=== PATIENT | female | born 1980 | race Caucasian/White ===

== ENCOUNTER 2016-12-06 15:23 | Emergency (ER) | payer OTHER ==
[2016-12-06 15:29] VITALS: BP 120/58; PULSE 83; TEMP 98.2; BMI 36.3
--- NOTE | 2016-12-06 16:30 | PDOC ---
History of Present Illness - General Chief Complaint: Cold Symptoms Stated Complaint: COUGH, FEVER Time Seen by Provider: 12/06/16 16:11 History Source: Patient Exam Limitations: No Limitations - History of Present Illness Initial Comments: 12/06/16 16:26 36 yr female with c/o cough body aches for 3 days. pt took tylenol yesterday, history of asthma no intubations. Pt denies abd pain neg nvd, neg urinary complaints. no sick contacts or foreign travel. Timing/Duration: reports: other (3 days ) Severity: reports: mild Past History - Past Medical History Allergies/Adverse Reactions: Allergies Allergy/AdvReac Type Severity Reaction Status Date / Time pineapple [Pineapple] Allergy Swelling Verified 12/06/16 15:26 wool Allergy Rash Uncoded 12/06/16 15:26 Tape AdvReac Rash Uncoded 12/06/16 15:26 Home Medications: Ambulatory Orders Ibuprofen 600 mg PO TID PRN #25 tablet 12/06/16 Anemia: No Asthma: Yes Cancer: No Cardiac Disorders: No CVA: No COPD: (PLEURISY) CHF: No Dementia: No Diabetes: No GI Disorders: No Disorders: Yes (RENAL COLIC, URINARY STENTS W/ REMOVAL) HTN: No Hypercholesterolemia: No Kidney Stones: Yes Liver Disease: No Suicide Attempt (Hx): No Seizures: No Thyroid Disease: No - Surgical History Abdominal Surgery: Yes Appendectomy: No Cardiac Surgery: No Cholecystectomy: Yes Lung Surgery: No Neurologic Surgery: No Orthopedic Surgery: No - Reproductive History LMP comment: 11/28/16 LMP Normal: Yes Is Patient Now?: No (#): 7 Para: 6 Therapeutic (s) & number: No Spontaneous : 0 Uterine Fibroids: Yes (upset at mention of the word hysterectomy. I went to further description of) - Immunization History Immunization Up to Date: Yes - Psycho/Social/Smoking Cessation Hx Anxiety: No Suicidal Ideation: No Smoking Status: Yes Smoking History: Never smoked Have you smoked in the past 12 months: No Number of Cigarettes Smoked Daily: 0 'Breaking Loose' booklet given: 04/26/12 Hx Alcohol Use: No Drug/Substance Use Hx: No Substance Use Type: None Hx Substance Use Treatment: No Respiratory Specific PMHX - Complaint Specific PMHX Angina: No Bronchitis: No Pneumonia: No Pulmonary Embolus: No TB (Tuberculosis): No Review of Systems - Review of Systems Able to Perform ROS?: Yes Is the patient limited [place] proficient: No Constitutional: No: Symptoms Reported HEENTM: Yes: See HPI Respiratory: Yes: See HPI *Physical Exam - Vital Signs Last Vital Signs Temp Pulse Resp BP Pulse Ox 98.2 F 83 18 120/58 98 12/06/16 15:26 12/06/16 15:26 12/06/16 15:12/06/16 15:12/06/16 15:26 - Physical Exam General Appearance: Yes: Nourished, Appropriately Dressed HEENT: positive: EOMI, LEISA, Normal Voice, TMs Normal, Pharynx Normal. negative : Nasal Congestion, Rhinorrhea Neck: positive: Supple. negative: Lymphadenopathy (R), Lymphadenopathy (L), Tender lateral, Tender midline Respiratory/Chest: positive: Lungs Clear, Normal Breath Sounds. negative: Chest Tender, Stridor, Wheezing Cardiovascular: positive: Regular Rhythm, Regular Rate Gastrointestinal/Abdominal: positive: Normal Bowel Sounds, Soft Musculoskeletal: positive: Normal Inspection Extremity: positive: Normal Capillary Refill, Normal Inspection, Normal Range of Motion Integumentary: positive: Normal Color, Dry, Warm Neurologic: positive: drapery maker II-XII NML intact, Fully Oriented, Alert, Normal Mood/ Affect, Normal Response, Motor Strength 5/5 Medical Decision Making - Medical Decision Making 12/06/16 16:29 cc: body aches, sore throat, fever non toxic stable vitals will check for flu, rapid strep motrin for pain *DC/Admit/Observation/Transfer Diagnosis at time of Disposition: Viral syndrome - Discharge Dispostion Disposition: HOME Condition at time of disposition: Good - Prescriptions Prescriptions: Ibuprofen 600 mg PO TID PRN #25 tablet PRN Reason: Fever Or Pain - Referrals Referrals: [facility] [Provider Group] - Patient Instructions Additional Instructions: follow with your doctor in 1-2 days for follow up exam get pleanty of rest take motrin 600mg every 6hrs for any fever or body aches increase your vitaminc c level and zinc return to ER for any worsening symptoms FLU and strep are negative - Post Discharge Activity Work/School Note: Back to Work
[2016-12-06 16:57] LABS: URINE APPEARANCE CLEAR; URINE BILIRUBIN NEGATIVE (NEGATIVE); URINE BLOOD NEGATIVE (NEGATIVE); URINE COLOR LTYELLOW; URINE GLUCOSE (UA) NEGATIVE (NEGATIVE); URINE KETONE NEGATIVE (NEGATIVE); URINE NITRITE NEGATIVE (NEGATIVE); URINE PROTEIN NEGATIVE (NEGATIVE); URINE UROBILINOGEN NEGATIVE mg/dL (0.2-1.0)
[2016-12-06] MEDS ORDERED: IBUPROFEN 600 MG TABLET (FP) PO ONE ×2 (17:03→17:05)
== END 2016-12-06 18:04 | disposition home or self-care (01) ==
LOC: JERFT 15:23
DX: B34.9 Viral infection, unspecified (principal)
CPT/HCPCS: 81003; 84703; 87070; 87430; 87804; 99281-25

== ENCOUNTER 2016-12-09 16:32 | Emergency (ER) | payer OTHER ==
[2016-12-09 16:55] VITALS: BMI 36.3
[2016-12-09] MEDS ORDERED: KETOROLAC TROMETHAMINE 60 MG/2 ML VIAL IM ONE (18:21)
[2016-12-09] MEDS ORDERED: AMOXICILLIN 500 MG CAPSULE (FP) PO ONE (18:24)
--- NOTE | 2016-12-09 18:33 | PDOC ---
Attending Attestation - Resident Resident Name: Brown Ivan - ED Attending Attestation I have performed the following: I have examined & evaluated the patient, The case was reviewed & discussed with the resident, I agree w/resident's findings & plan, Exceptions are as noted - HPI HPI: 12/09/16 18:31 Healthy 36-year-old female with a past medical history seen here previously for throat pain, rapid strep and influenza swabs at that time was negative so she was discharged. Now presents with worsening throat pain and chills and painful swallowing, no difficulty breathing or managing her secretions or speaking. No history of recurring pharyngitis. - Physicial Exam PE: 12/09/16 18:32 Low-grade fever, low-grade tachycardia, otherwise well-appearing seated in stretcher Speaking full sentences, clear voice, no stridor, managing secretions Mild left tonsillar swelling with exudates, uvula midline, positive submandibular and anterior cervical lymphadenopathy - Medical Decision Making 12/09/16 18:32 Patient seen and evaluated with the resident. I agree with the overall evaluation, assessment, and management with the following summary of visit: 36-year-old female with clinical presentation consistent with bacterial pharyngitis, low-grade fever and tachycardia. Not ill appearing, hemodynamically stable, airway patent. NSAIDs and Tylenol for pain/fever Throat culture sent again Start antibiotics Understands return criteria
[2016-12-09] MEDS ORDERED: AMOXICILLIN ORAL SUSPENSION - 250 MG/5 ML ONE (18:36)
[2016-12-09] MEDS ORDERED: KETOROLAC TROMETHAMINE 60 MG/2 ML VIAL ONE (18:36)
--- NOTE | 2016-12-09 18:36 | PDOC ---
History of Present Illness - General Chief Complaint: Shortness of Breath Stated Complaint: PAIN, ACUTE Time Seen by Provider: 12/09/16 18:02 History Source: Patient Exam Limitations: No Limitations - History of Present Illness Initial Comments: 12/09/16 18:27 Patient is a 36F with history of asthma (no intubations) here today complaining of sore throat. She was seen tuesday for a sore throat, was strep and flu negative, and sent home with instructions to take ibuprofen as needed for pain. She has no cough. She endorses fever, and tender cervical pain. She says that it 's painful to swallow, but reports being able to handle her secretions. She denies chest pain, shortness of breath, and difficulty with urination. Past History - Past Medical History Allergies/Adverse Reactions: Allergies Allergy/AdvReac Type Severity Reaction Status Date / Time pineapple [Pineapple] Allergy Swelling Verified 12/06/16 15:26 wool Allergy Rash Uncoded 12/06/16 15:26 Tape AdvReac Rash Uncoded 12/06/16 15:26 Home Medications: Ambulatory Orders Ibuprofen 600 mg PO TID PRN #25 tablet 12/06/16 Amoxicillin - [Amoxicillin 500mg Capsule -] 500 mg PO BID #19 capsule 12/09/16 Ibuprofen 600 mg PO TID #25 tablet 12/09/16 Anemia: No Asthma: Yes Cancer: No Cardiac Disorders: No CVA: No COPD: (PLEURISY) CHF: No Dementia: No Diabetes: No GI Disorders: No Disorders: Yes (RENAL COLIC, URINARY STENTS W/ REMOVAL) HTN: No Hypercholesterolemia: No Kidney Stones: Yes Liver Disease: No Suicide Attempt (Hx): No Seizures: No Thyroid Disease: No - Surgical History Abdominal Surgery: Yes Appendectomy: No Cardiac Surgery: No Cholecystectomy: Yes Lung Surgery: No Neurologic Surgery: No Orthopedic Surgery: No - Reproductive History (#): 7 Para: 6 Therapeutic (s) & number: No Spontaneous : 0 Uterine Fibroids: Yes (upset at mention of the word hysterectomy. I went to further description of) - Immunization History Immunization Up to Date: Yes - Psycho/Social/Smoking Cessation Hx Anxiety: No Suicidal Ideation: No Smoking Status: Yes Smoking History: Never smoked Have you smoked in the past 12 months: No Number of Cigarettes Smoked Daily: 0 Information on smoking cessation initiated: No 'Breaking Loose' booklet given: 04/26/12 Hx Alcohol Use: No Drug/Substance Use Hx: No Substance Use Type: None Hx Substance Use Treatment: No Review of Systems - Review of Systems Comments:: 12/09/16 18:35 GENERAL/CONSTITUTIONAL: Positive for fever. No weakness. HEAD, EYES, EARS, NOSE AND THROAT: No change in vision. Positive for sore throat CARDIOVASCULAR: No chest pain or shortness of breath RESPIRATORY: No cough, wheezing, or hemoptysis. GASTROINTESTINAL: Positive for nausea. Negative for vomiting, diarrhea or constipation. GENITOURINARY: No dysuria, frequency, or change in urination. MUSCULOSKELETAL: Positive for general body aches. No focal joint pain. SKIN: No rash NEUROLOGIC: Positive for headache. Negative for vertigo, loss of consciousness, or change in strength/sensation. ENDOCRINE: No increased thirst. No abnormal weight change HEMATOLOGIC/LYMPHATIC: No anemia, easy bleeding, or history of blood clots. ALLERGIC/IMMUNOLOGIC: No hives or skin allergy. *Physical Exam - Vital Signs Last Vital Signs Temp Pulse Resp BP Pulse Ox 99.2 F 105 H 16 139/86 98 12/09/16 16:45 12/09/16 16:45 12/09/16 16:45 12/09/16 16:45 12/09/16 16:45 - Physical Exam Comments: 12/09/16 18:37 GENERAL: Awake, alert, and fully oriented, in no acute distress HEAD: No signs of trauma, normocephalic, atraumatic EYES: PERRLA, EOMI, sclera anicteric, conjunctiva clear ENT: Auricles normal inspection, hearing grossly normal, nares patent, oropharynx has erythema and exudate, uvula midline NECK: Normal ROM, tender lymphadenopathy, JVD, or masses LUNGS: No distress, speaks full sentences, clear to auscultation bilaterally HEART: Regular rate and rhythm, normal S1 and S2, no murmurs, rubs or gallops, peripheral pulses normal and equal bilaterally. ABDOMEN: Soft, nontender, normoactive bowel sounds. No guarding, no rebound. No masses EXTREMITIES: Normal inspection, Normal range of motion, no edema. No clubbing or cyanosis. NEUROLOGICAL: Cranial nerves II through XII grossly intact. Normal speech, normal gait, no focal sensorimotor deficits SKIN: Warm, Dry, normal turgor, no rashes or lesions noted. Medical Decision Making - Medical Decision Making 12/09/16 18:38 36F with history of asthma here today with sore throat. Tachy to 105, vital signs otherwise normal and stable. Will get repeat strep culture. Will give toradol im and amoxicillin for CENTOR score of 4. 12/09/16 23:14 Patient given 1L of NS. Now says throat pain has improved to the point where she can eat. Feels better. Will discharge home with amoxicillin and ibuprofen. *DC/Admit/Observation/Transfer Diagnosis at time of Disposition: Strep pharyngitis - Discharge Dispostion Disposition: HOME Condition at time of disposition: Good Admit: No - Prescriptions Prescriptions: Amoxicillin - [Amoxicillin 500mg Capsule -] 500 mg PO BID #19 capsule Ibuprofen 600 mg PO TID #25 tablet - Patient Instructions Printed Discharge Instructions: DI for Strep Throat Additional Instructions: Your prescription for ibuprofen was [facility] to [email or web address] Tuesday. Please pick that up with your antibiotics.
[2016-12-09] MEDS ORDERED: SODIUM CHLORIDE 1,000 ML IV STA (20:07)
[2016-12-09 20:17] VITALS: BP 117/52; PULSE 97; TEMP 99
== END 2016-12-09 21:50 | disposition home or self-care (01) ==
LOC: JER 16:32 → JERFT 16:32 → JER 21:50
PROC: 3E0337Z Introduction of Electrolytic and Water Balance Substance into Peripheral Vein, Percutaneous Approach (ICD-10-PCS; principal; 2016-12-09)
PROC: 3E0233Z Introduction of Anti-inflammatory into Muscle, Percutaneous Approach (ICD-10-PCS; 2016-12-09)
DX: J02.0 Streptococcal pharyngitis (principal); B95.5 Unspecified streptococcus as the cause of diseases classified elsewhere
CPT/HCPCS: 87070; 87430; 99283-25

== ENCOUNTER 2016-12-21 17:22 | Emergency (ER) | payer OTHER ==
[2016-12-21 17:43] VITALS: BP 135/78; PULSE 89; TEMP 98.2; BMI 36.3
--- NOTE | 2016-12-21 18:36 | PDOC ---
History of Present Illness - General Chief Complaint: Vaginal Sxs Stated Complaint: ALLERGIC REACTION Time Seen by Provider: 12/21/16 18:07 History Source: Patient Exam Limitations: No Limitations - History of Present Illness Initial Comments: 12/21/16 18:34 Patient is a 36-year-old female currently under treatment with amoxicillin for strep throat presents with vaginal itching and discharge. Past Medical History: Denies. Allergies: No known allergies Medications: Currently on amoxicillin Family History: Non-contributory Social History: Denies smoking, alcohol use, or IVDU Review of Systems GENERAL/CONSTITUTIONAL: No fever or chills. No weakness. No weight change. HEAD, EYES, EARS, NOSE AND THROAT: No change in vision. No ear pain or discharge. No sore throat. CARDIOVASCULAR: No chest pain or shortness of breath. RESPIRATORY: No cough, wheezing, or hemoptysis. GASTROINTESTINAL: No nausea, vomiting, diarrhea or constipation. No rectal bleeding. GENITOURINARY: No dysuria, frequency, or change in urination. Vaginal discharge , external itching MUSCULOSKELETAL: No joint or muscle swelling or pain. No neck or back pain. SKIN: No rash or easy bruising. NEUROLOGIC: No headache, vertigo, loss of consciousness, or loss of sensation. ENDOCRINE: No increased thirst. No abnormal weight change. HEMATOLOGIC/LYMPHATIC: No anemia, easy bleeding, or history of blood clots. ALLERGIC/IMMUNOLOGIC: No hives or skin allergy. No latex allergy. Physical Exam: GENERAL: The patient is awake, alert, and fully oriented, in no acute distress. EYES: Pupils equal, round and reactive to light, extraocular movements intact, sclera anicteric, conjunctiva clear. ENT: Ears normal, nares patent, oropharynx clear without exudates. Moist mucous membranes. No uvula deviation NECK: Normal range of motion, supple without lymphadenopathy, JVD, or masses. LUNGS: Breath sounds equal, clear to auscultation bilaterally. No wheezes, and no crackles. HEART: Regular rate and rhythm, normal S1 and S2 without murmur, rub or gallop. ABDOMEN: Soft, nontender, normoactive bowel sounds. No guarding, no rebound. No masses. No bruising or abrasions GENITALIA: External labia is erythematous without lesions, there is a white non- foul odor discharge, cervical os is closed, no CMT. MUSCULOSKELETAL: Normal range of motion, no edema. No clubbing or cyanosis. No cords, erythema, or tenderness. No CVA Tenderness with fist. NEUROLOGICAL: Cranial nerves II through XII grossly intact. Normal speech, normal gait. SKIN: Warm, Dry, normal turgor, no rashes or lesions noted. Past History - Past Medical History Allergies/Adverse Reactions: Allergies Allergy/AdvReac Type Severity Reaction Status Date / Time pineapple [Pineapple] Allergy Swelling Verified 12/06/16 15:26 wool Allergy Rash Uncoded 12/06/16 15:26 Tape AdvReac Rash Uncoded 12/06/16 15:26 Home Medications: Ambulatory Orders Amoxicillin - [Amoxicillin 500mg Capsule -] 500 mg PO BID #19 capsule 12/09/16 Benzocaine/Resorcinol [Vagisil Cream] 30 gm TP BID #1 tube 12/21/16 Fluconazole [Diflucan] 150 mg PO ONCE #1 tablet 12/21/16 Anemia: No Asthma: Yes Cancer: No Cardiac Disorders: No CVA: No COPD: (PLEURISY) CHF: No Dementia: No Diabetes: No GI Disorders: No Disorders: Yes (RENAL COLIC, URINARY STENTS W/ REMOVAL) HTN: No Hypercholesterolemia: No Kidney Stones: Yes Liver Disease: No Seizures: No Thyroid Disease: No - Surgical History Abdominal Surgery: Yes Appendectomy: No Cardiac Surgery: No Cholecystectomy: Yes Lung Surgery: No Neurologic Surgery: No Orthopedic Surgery: No - Reproductive History (#): 7 Para: 6 Therapeutic (s) & number: No Spontaneous : 0 Uterine Fibroids: Yes (upset at mention of the word hysterectomy. I went to further description of) - Immunization History Immunization Up to Date: Yes - Suicide/Smoking/Psychosocial Hx Smoking Status: Yes Smoking History: Never smoked Have you smoked in the past 12 months: No Number of Cigarettes Smoked Daily: 0 Information on smoking cessation initiated: No 'Breaking Loose' booklet given: 04/26/12 Hx Alcohol Use: No Drug/Substance Use Hx: No Substance Use Type: None Hx Substance Use Treatment: No *Physical Exam - Vital Signs Last Vital Signs Temp Pulse Resp BP Pulse Ox 98.2 F 89 16 135/78 98 12/21/16 17:38 12/21/16 17:38 12/21/16 17:38 12/21/16 17:38 12/21/16 17:38 Medical Decision Making - Medical Decision Making 12/21/16 18:36 A/P: Patient with vaginitis from antibiotic use will DC patient home with prescription for vagisill external cream and Diflucan, continue antibiotic treatment, follow-up with [facility] of symptoms persist in 3 days. *DC/Admit/Observation/Transfer Diagnosis at time of Disposition: Vaginitis Qualifiers: Chronicity: acute Qualified Code(s): N76.0 - Acute vaginitis - Discharge Dispostion Disposition: HOME Condition at time of disposition: Good Admit: No - Prescriptions Prescriptions: Fluconazole [Diflucan] 150 mg PO ONCE #1 tablet Benzocaine/Resorcinol [Vagisil Cream] 30 gm TP BID #1 tube - Referrals Referrals: [facility] [Other] - Patient Instructions Printed Discharge Instructions: Atrophic Vaginitis Additional Instructions: Please take medication as prescribed and apply topical cream to stop itching. cool compresses to affected area - Post Discharge Activity Forms/Work/School Notes: Back to Work
== END 2016-12-21 18:42 | disposition home or self-care (01) ==
LOC: JERFT 17:22
DX: N76.0 Acute vaginitis (principal); T36.0X5A Adverse effect of penicillins, initial encounter; Y92.038 Other place in apartment as the place of occurrence of the external cause
CPT/HCPCS: 99281-25

== ENCOUNTER 2017-03-26 12:31 | Emergency (ER) | payer OTHER ==
[2017-03-26 12:53] VITALS: BMI 39.4
[2017-03-26] MEDS ORDERED: NAPROXEN 500 MG TABLET (FP) PO ONE (13:28)
[2017-03-26] MEDS ORDERED: ALBUTEROL SO4 0.083% IH SOL 2.5 MG/3 ML VIAL.NEB. NEB ONE ×3 (13:28→15:36)
[2017-03-26] MEDS ORDERED: NAPROXEN 500 MG TABLET (FP) ONE (13:33)
--- NOTE | 2017-03-26 13:50 | PDOC ---
History of Present Illness - General History Source: Patient Exam Limitations: No Limitations - History of Present Illness Initial Comments: 03/26/17 14:25 The patient is a 37 year old female with a significant PMH of asthma and obesity who presents to the emergency department with cold-like symptoms beginning approximately 4 days ago. The patient reports dry cough, sore throat, chills, subjective fever and body aches over this 4 day span. The patient denies sick contacts or recent travel. The patient denies chest pain, shortness of breath, headache and dizziness. Denies nausea, vomit, diarrhea and constipation. Denies dysuria, frequency, urgency and hematuria. Allergies: NKDA Past surgical history: Cholecystectomy. Social history: No reported cigarette, alcohol, or drug use. PCP: None reported. <Jonh García - Last Filed: 03/26/17 14:33> - General History Source: Patient Exam Limitations: No Limitations <Jonh Cardoza - Last Filed: 03/26/17 15:24> - General Chief Complaint: Cold Symptoms Stated Complaint: COUGH Time Seen by Provider: 03/26/17 12:59 Past History <Jonh García - Last Filed: 03/26/17 14:33> - Past Medical History Anemia: No Asthma: Yes Cancer: No Cardiac Disorders: No CVA: No COPD: (PLEURISY) CHF: No Dementia: No Diabetes: No GI Disorders: No Disorders: Yes (RENAL COLIC, URINARY STENTS W/ REMOVAL) HTN: No Hypercholesterolemia: No Kidney Stones: Yes Liver Disease: No Seizures: No Thyroid Disease: No - Surgical History Abdominal Surgery: No Appendectomy: No Cardiac Surgery: No Cholecystectomy: Yes Lung Surgery: No Neurologic Surgery: No Orthopedic Surgery: No - Reproductive History (#): 7 Para: 6 Therapeutic (s) & number: No Spontaneous : 0 Uterine Fibroids: Yes (upset at mention of the word hysterectomy. I went to further description of) - Immunization History Immunization Up to Date: Yes - Suicide/Smoking/Psychosocial Hx Smoking Status: Yes Smoking History: Never smoked Have you smoked in the past 12 months: No Number of Cigarettes Smoked Daily: 0 'Breaking Loose' booklet given: 04/26/12 Hx Alcohol Use: No Drug/Substance Use Hx: No Substance Use Type: None Hx Substance Use Treatment: No <Jonh Cardoza - Last Filed: 03/26/17 15:24> - Past Medical History Allergies/Adverse Reactions: Allergies Allergy/AdvReac Type Severity Reaction Status Date / Time pineapple [Pineapple] Allergy Swelling Verified 03/26/17 12:53 wool Allergy Rash Uncoded 03/26/17 12:53 Tape AdvReac Rash Uncoded 03/26/17 12:53 Home Medications: Ambulatory Orders Acetaminophen [Tylenol] 650 mg PO Q4H PRN #20 tablet 03/26/17 Albuterol Sulfate Inhaler - [Ventolin Hfa Inhaler -] 1 - 2 inh PO Q4H PRN #1 inhaler 03/26/17 Benzonatate [Tessalon Pearls -] 100 mg PO TID PRN #21 capsule 03/26/17 Naproxen 500 mg PO BID PRN #20 tablet. 03/26/17 Review of Systems - Review of Systems Able to Perform ROS?: Yes Comments:: 03/26/17 14:25 GENERAL/CONSTITUTIONAL: (+) Chills. (+) Subjective tactile fever. (+) Body aches. No weakness. HEAD, EYES, EARS, NOSE AND THROAT: (+) Sore throat. No change in vision. No ear pain or discharge. CARDIOVASCULAR: No chest pain or shortness of breath. RESPIRATORY: (+) Dry cough. No wheezing or hemoptysis. GASTROINTESTINAL: No nausea, vomiting, diarrhea or constipation. GENITOURINARY: No dysuria, frequency, or change in urination. MUSCULOSKELETAL: No joint or muscle swelling or pain. No neck or back pain. SKIN: No rash NEUROLOGIC: No headache, vertigo, loss of consciousness, or change in strength/ sensation. ENDOCRINE: No increased thirst. No abnormal weight change. HEMATOLOGIC/LYMPHATIC: No anemia, easy bleeding, or history of blood clots. ALLERGIC/IMMUNOLOGIC: No hives or skin allergy. <Jonh García - Last Filed: 03/26/17 14:33> *Physical Exam - Vital Signs Last Vital Signs Temp Pulse Resp BP Pulse Ox 98.3 F 72 20 148/67 97 03/26/17 12:50 03/26/17 12:50 03/26/17 12:50 03/26/17 12:50 03/26/17 12:50 - Physical Exam Comments: 03/26/17 14:25 GENERAL: Awake, alert, and fully oriented, in no acute distress HEAD: No signs of trauma EYES: PERRLA, EOMI, sclera anicteric, conjunctiva clear ENT: (+) Erythematous oropharynx, no exudates, petechiae, or purulence. Auricles normal inspection, hearing grossly normal, nares patent. Moist mucosa NECK: Normal ROM, supple, no lymphadenopathy, JVD, or masses LUNGS: Breath sounds equal, clear to auscultation bilaterally. No wheezes, and no crackles HEART: Regular rate and rhythm, normal S1 and S2, no murmurs, rubs or gallops ABDOMEN: Soft, nontender, normoactive bowel sounds. No guarding, no rebound. No masses EXTREMITIES: Normal range of motion, no edema. No clubbing or cyanosis. No cords, erythema, or tenderness NEUROLOGICAL: Cranial nerves II through XII grossly intact. Normal speech, normal gait SKIN: Warm, Dry, normal turgor, no rashes or lesions noted. <Jonh García - Last Filed: 03/26/17 14:33> - Vital Signs Last Vital Signs Temp Pulse Resp BP Pulse Ox 98.3 F 72 20 148/67 97 03/26/17 12:50 03/26/17 12:50 03/26/17 12:50 03/26/17 12:50 03/26/17 12:50 <Jonh Cardoza - Last Filed: 03/26/17 15:24> ED Treatment Course - Medications Given in the ED: ED Medications Discontinued Medications Generic Name Dose Route Start Last Admin Trade Name Freq PRN Reason Stop Dose Admin Albuterol Sulfate 1 amp 03/26/17 13:28 03/26/17 13:39 Ventolin 0.083% Nebulizer Soln - NEB 03/26/17 13:29 1 amp ONCE ONE Administration Naproxen 500 mg 03/26/17 13:28 03/26/17 13:39 Naprosyn - PO 03/26/17 13:29 500 mg ONCE ONE Administration <Jonh García - Last Filed: 03/26/17 14:33> - Medications Given in the ED: ED Medications Discontinued Medications Generic Name Dose Route Start Last Admin Trade Name Freq PRN Reason Stop Dose Admin Albuterol Sulfate 1 amp 03/26/17 13:28 03/26/17 13:39 Ventolin 0.083% Nebulizer Soln - NEB 03/26/17 13:29 1 amp ONCE ONE Administration Naproxen 500 mg 03/26/17 13:28 03/26/17 13:39 Naprosyn - PO 03/26/17 13:29 500 mg ONCE ONE Administration <Jonh Cardoza - Last Filed: 03/26/17 15:24> Medical Decision Making - Medical Decision Making 03/26/17 13:47 A portion of this note was documented by scribe services under my direction. I have reviewed the details of the note, within reason, and agree with the documentation with the following case summary and management plan written by me. Patient treated in the ED. Nursing notes are reviewed and incorporated into the medical decision-making. Vital signs reviewed. Peripheral IV access obtained by the nurse, laboratory studies are drawn and sent, reviewed and interpreted by myself. Vital Signs Temp Pulse Resp BP Pulse Ox 98.3 F 72 20 148/67 97 03/26/17 12:50 03/26/17 12:50 03/26/17 12:50 03/26/17 12:50 03/26/17 12:50 37-year-old female with past medical history obesity, asthma presents with 4 days of sore throat, nonproductive cough, chills, body aches, tactile fevers. Denies sick contacts or recent travels. States that she has not taken any medications and does not believe she is wheezing. Stated she felt general malaise and came to the ED. Patient overall is nontoxic appearing. Differential includes viral pharyngitis, influenza, viral syndrome, strep throat. We'll obtain a rapid strep and influenza swab. NSAIDs and reassess. 03/26/17 15:19 Influenza and rapid strep negative. Likely viral syndrome and viral pharyngitis. Supportive care I discussed the physical exam findings, ancillary test results and final diagnoses with the patient. I answered all of the patient's questions. The patient was satisfied with the care received and felt comfortable with the discharge plan and treatment plan. The patient will call their primary care physician within 24 hours to arrange follow-up and will return to the Emergency Department with any new, persistant or worsening symptoms. <Jonh Cardoza - Last Filed: 03/26/17 15:24> *DC/Admit/Observation/Transfer - Attestations Scribe Attestion: 03/26/17 14:26 Documentation prepared by Jonh García, acting as anesthesiology medical doctor for Jonh Cardoza MD. <Jonh García - Last Filed: 03/26/17 14:33> - Discharge Dispostion Admit: No <Jonh Cardoza - Last Filed: 03/26/17 15:24> Diagnosis at time of Disposition: Viral pharyngitis, Viral syndrome - Discharge Dispostion Disposition: HOME Condition at time of disposition: Stable - Prescriptions Prescriptions: Acetaminophen [Tylenol] 650 mg PO Q4H PRN #20 tablet PRN Reason: Pain/fever Albuterol Sulfate Inhaler - [Ventolin Hfa Inhaler -] 1 - 2 inh PO Q4H PRN #1 inhaler PRN Reason: Cough Benzonatate [Tessalon Pearls -] 100 mg PO TID PRN #21 capsule PRN Reason: Cough Naproxen 500 mg PO BID PRN #20 tablet.dr PRN Reason: Pain/Fever - Patient Instructions Printed Discharge Instructions: DI for Viral Pharyngitis, DI for Viral Syndrome Additional Instructions: Your rapid strep and influenza test is negative. Take 500 mg naproxen every 12 hours as needed for pain or fever. For additional relief, take 650 mg tylenol every 4 hours as needed. Drink plenty of fluids and rest. It may take several days before your symptoms improve. Follow up with your doctor,. - Post Discharge Activity Forms/Work/School Notes: Back to Work
[2017-03-26 15:31] VITALS: BP 137/76; PULSE 78; TEMP 97.8
== END 2017-03-26 15:41 | disposition home or self-care (01) ==
LOC: JER 12:31
PROC: 3E0F7GC Introduction of Other Therapeutic Substance into Respiratory Tract, Via Natural or Artificial Opening (ICD-10-PCS; principal; 2017-03-26)
DX: J02.9 Acute pharyngitis, unspecified (principal); B97.89 Other viral agents as the cause of diseases classified elsewhere; J44.9 Chronic obstructive pulmonary disease, unspecified; R09.1 Pleurisy
CPT/HCPCS: 87070; 87430; 87804; 94640; 99282-25

== ENCOUNTER 2017-05-18 11:55 | Emergency (ER) | payer OTHER ==
[2017-05-18 12:15] VITALS: BP 121/84; PULSE 96; TEMP 98.5
== END 2017-05-18 12:30 | disposition left against medical advice (07) ==
LOC: JER 11:55 → JERFT 11:55 → JER 12:30
DX: Z53.21 Procedure and treatment not carried out due to patient leaving prior to being seen by health care provider (principal)
CPT/HCPCS: 99281-25

== ENCOUNTER 2017-05-18 14:39 | Emergency (ER) | payer OTHER ==
[2017-05-18 14:52] VITALS: BP 154/99; PULSE 103; TEMP 98.9
--- NOTE | 2017-05-18 15:21 | PDOC ---
History of Present Illness - General History Source: Patient <ChioNancyus Hernandez - Last Filed: 05/18/17 17:10> - General History Source: Patient (The patient is a 37 year old female, with a significant past medical history of asthma who presents to the emergency department via walk-in with, approx 3 days of productive cough with clear and brown sputum, fever, chills, generalized body aches and weakness. The patient reports a measured temperature of 101 F last night. The patient reports she took Tylenol for the fever with mild relief. The patient also reports mild shortness of breath described as a chest tightness that feels similar to her asthma. She denies any recent sick contacts. She denies any recent nausea, vomit , diarrhea or constipation. She denies any recent dysuria, urgency, frequency or urgency. She denies any recent chest pain, palpitations, lightheadedness, swelling or calf tenderness. ) Exam Limitations: No Limitations <Oliverio Mckenna - Last Filed: 05/18/17 17:18> - General Chief Complaint: Cold Symptoms Stated Complaint: COUGH,FLU SYMPTOMS Time Seen by Provider: 05/18/17 14:41 Past History - Past Medical History Anemia: No Asthma: Yes Cancer: No Cardiac Disorders: No CVA: No COPD: No (PLEURISY) CHF: No Dementia: No Diabetes: No GI Disorders: No Disorders: Yes (RENAL COLIC, URINARY STENTS W/ REMOVAL) HTN: No Hypercholesterolemia: No Kidney Stones: Yes Liver Disease: No Seizures: No Thyroid Disease: No - Surgical History Abdominal Surgery: No Appendectomy: No Cardiac Surgery: No Cholecystectomy: Yes Lung Surgery: No Neurologic Surgery: No Orthopedic Surgery: No - Reproductive History (#): 7 Para: 6 Therapeutic (s) & number: No Spontaneous : 0 Uterine Fibroids: Yes (upset at mention of the word hysterectomy. I went to further description of) - Immunization History Immunization Up to Date: Yes - Suicide/Smoking/Psychosocial Hx Smoking Status: Yes Smoking History: Never smoked Have you smoked in the past 12 months: No Number of Cigarettes Smoked Daily: 0 Information on smoking cessation initiated: No 'Breaking Loose' booklet given: 04/26/12 Hx Alcohol Use: No Drug/Substance Use Hx: No Substance Use Type: None Hx Substance Use Treatment: No <Moucha,Remus S - Last Filed: 05/18/17 17:10> <Oliverio Mckenna - Last Filed: 05/18/17 17:18> - Past Medical History Allergies/Adverse Reactions: Allergies Allergy/AdvReac Type Severity Reaction Status Date / Time pineapple [Pineapple] Allergy Swelling Verified 05/18/17 14:41 wool Allergy Rash Uncoded 05/18/17 14:41 Tape AdvReac Rash Uncoded 05/18/17 14:41 Home Medications: Ambulatory Orders Albuterol Sulfate Inhaler - [Ventolin Hfa Inhaler -] 1 - 2 inh PO Q4H PRN #1 inhaler 03/26/17 Acetaminophen [Tylenol] 650 mg PO ONCE PRN 05/18/17 Azithromycin [Zithromax Tri-Braulio (3 DAYS) -] 500 mg PO DAILY #3 tablet 05/18/17 Cetirizine HCl/Pseudoephedrine [Zyrtec-D Tablet] 1 each PO BID #14 tab.er.12h Review of Systems - Review of Systems Constitutional: Yes: Chills, Fever, Weakness. No: Diaphoresis HEENTM: No: Eye Pain, Blurred Vision, Double Vision, Difficulty Swallowing Respiratory: Yes: Shortness of Breath, Productive cough. No: Wheezing, Hemoptysis Cardiac (ROS): No: Chest Pain, Edema, Irregular Heart Rate, Lightheadedness, Palpitations, Syncope ABD/GI: No: Abdominal Distended, Constipated, Diarrhea, Nausea, Vomiting : No: Burning, Dysuria, Discharge, Frequency, Hematuria Musculoskeletal: No: Back Pain, Joint Pain Integumentary: No: Lesions, Rash Neurological: Yes: Headache. No: Numbness, Paresthesia, Dizziness Psychiatric: No: Anxiety, Depression Endocrine: No: Intolerance to Cold, Intolerance to Heat, Unexplained Weight Gain , Unexplained Weight Loss Hematologic/Lymphatic: No: Easy Bleeding, Easy Bruising <Oliverio Mckenna - Last Filed: 05/18/17 17:18> *Physical Exam - Vital Signs Last Vital Signs Temp Pulse Resp BP Pulse Ox 98.9 F 103 H 20 154/99 96 05/18/17 14:40 05/18/17 14:40 05/18/17 14:40 05/18/17 14:40 05/18/17 14:40 <Moucha,Remus S - Last Filed: 05/18/17 17:10> - Vital Signs Last Vital Signs Temp Pulse Resp BP Pulse Ox 98.9 F 103 H 20 154/99 96 05/18/17 14:40 05/18/17 14:40 05/18/17 14:40 05/18/17 14:40 05/18/17 14:40 - Physical Exam General Appearance: Yes: Appropriately Dressed. No: Apparent Distress HEENT: positive: EOMI, LEISA, Normal ENT Inspection, Normal Voice, Symmetrical, TMs Normal, Pharynx Normal Neck: positive: Trachea midline, Supple. negative: Tender Respiratory/Chest: positive: Lungs Clear, Normal Breath Sounds. negative: Respiratory Distress, Accessory Muscle Use, Crackles, Rales, Rhonchi, Wheezing Cardiovascular: positive: Regular Rhythm, S1, S2, Tachycardia. negative: Edema , JVD, Murmur Gastrointestinal/Abdominal: positive: Normal Bowel Sounds, Soft. negative: Tender, Distended, Guarding, Rebound Musculoskeletal: positive: Normal Inspection. negative: CVA Tenderness Extremity: positive: Normal Inspection, Normal Range of Motion. 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 Chest x ray, PA and Lateral Comparison: Prior chest x-ray dated 03/30/2012 The cardiac silhouette is within normal limits in size. The lung is clear. Mediastinum and visualized osseous structures appear grossly intact . Note is made of postcholecystectomy surgical clips in the right upper abdomen. Impression Unremarkable examination without evidence of acute lung disease. Reported By: Mazin Zimmer MD <Oliverio Mckenna - Last Filed: 05/18/17 17:18> *DC/Admit/Observation/Transfer - Discharge Dispostion Admit: No <Sterling Barroso - Last Filed: 05/18/17 17:10> - Attestations Scribe Attestion: 05/18/17 15:34 Documentation prepared by Oliverio Mckenna, acting as medical record retrieval specialist for Sterling Barroso MD. <Oliverio Mckenna - Last Filed: 05/18/17 17:18> Diagnosis at time of Disposition: Viral disease, Bronchitis - Discharge Dispostion Disposition: HOME Condition at time of disposition: Improved - Prescriptions Prescriptions: Azithromycin [Zithromax Tri-Braulio (3 DAYS) -] 500 mg PO DAILY #3 tablet Cetirizine HCl/Pseudoephedrine [Zyrtec-D Tablet] 1 each PO BID #14 tab.er.12h - Patient Instructions Printed Discharge Instructions: DI for Acute Bronchitis - Post Discharge Activity Forms/Work/School Notes: Back to Work
[2017-05-18] MEDS ORDERED: ALBUTEROL SO4 2.5/IPRATROPIUM 0.5 INH SOL 3 ML VIAL.NEB. NEB ONE (15:38)
[2017-05-18] MEDS: ALBUTEROL SO4 2.5/IPRATROPIUM 0.5 INH SOL 3 ML VIAL.NEB. NEB SCH ×3 (15:41→16:20)
[2017-05-18] MEDS ORDERED: IBUPROFEN 600 MG TABLET (FP) PO ONE ×2 (17:07→17:15)
== END 2017-05-18 17:18 | disposition home or self-care (01) ==
LOC: FER 14:39
PROC: 3E0F7GC Introduction of Other Therapeutic Substance into Respiratory Tract, Via Natural or Artificial Opening (ICD-10-PCS; principal; 2017-05-18)
DX: J20.8 Acute bronchitis due to other specified organisms (principal); B97.89 Other viral agents as the cause of diseases classified elsewhere; J45.909 Unspecified asthma, uncomplicated
CPT/HCPCS: 71046-TC-FY; 94640; 99283-25

== ENCOUNTER 2018-05-03 15:20 | Emergency (ER) | payer OTHER ==
[2018-05-03 15:50] VITALS: BP 119/74; PULSE 102; TEMP 98.4; BMI 89.6
--- NOTE | 2018-05-03 15:55 | PDOC ---
Rapid Medical Evaluation Time Seen by Provider: 05/03/18 15:45 Medical Evaluation: Allergies Allergy/AdvReac Type Severity Reaction Status Date / Time pineapple [Pineapple] Allergy Swelling Verified 05/18/17 14:41 wool Allergy Rash Uncoded 05/18/17 14:41 Tape AdvReac Rash Uncoded 05/18/17 14:41 05/03/18 15:49 I have performed a brief in-person evaluation of this patient. The patient presents with a chief complaint of: Intermittent dizziness w/ nausea x 1 week. LMP 03/14 (not sure what date). Thinks she might be . (s/p 1 ectopic s/p surgery, 1 spon ab) Pertinent physical exam findings:Stable, noel uncomfortable I have ordered the following:upreg The patient will proceed to the ED for further evaluation. Discharge Disposition - Diagnosis Dizziness - Referrals - Patient Instructions - Post Discharge Activity
[2018-05-03] MEDS ORDERED: ACETAMINOPHEN 650 MG/20.3 ML ORAL SOLUTION (CUPS) PO ONE (17:20)
[2018-05-03] MEDS ORDERED: ONDANSETRON 4 MG/2 ML VIAL IVPUSH ONE (17:20)
[2018-05-03] MEDS ORDERED: SODIUM CHLORIDE 1,000 ML IV STA (17:20)
--- NOTE | 2018-05-03 17:29 | PDOC ---
History of Present Illness - General Chief Complaint: Vaginal Bleeding Stated Complaint: WEAKNESS Time Seen by Provider: 05/03/18 15:45 Past History - Travel Traveled outside of the country in the last 30 days: No Close contact w/someone who was outside of country & ill: No - Past Medical History Allergies/Adverse Reactions: Allergies Allergy/AdvReac Type Severity Reaction Status Date / Time pineapple [Pineapple] Allergy Swelling Verified 05/18/17 14:41 wool Allergy Rash Uncoded 05/18/17 14:41 Tape AdvReac Rash Uncoded 05/18/17 14:41 Home Medications: Ambulatory Orders Albuterol Sulfate Inhaler - [Ventolin Hfa Inhaler -] 1 - 2 inh PO Q4H PRN #1 inhaler 03/26/17 Acetaminophen [Tylenol] 650 mg PO ONCE PRN 05/18/17 Azithromycin [Zithromax Tri-Braulio (3 DAYS) -] 500 mg PO DAILY #3 tablet 05/18/17 Cetirizine HCl/Pseudoephedrine [Zyrtec-D Tablet] 1 each PO BID #14 tab.er.12h Anemia: No Asthma: Yes Cancer: No Cardiac Disorders: No CVA: No COPD: No (PLEURISY) CHF: No Dementia: No Diabetes: No GI Disorders: No Disorders: Yes (RENAL COLIC, URINARY STENTS W/ REMOVAL) HTN: No Hypercholesterolemia: No Kidney Stones: Yes Liver Disease: No Seizures: No Thyroid Disease: No - Surgical History Abdominal Surgery: No Appendectomy: No Cardiac Surgery: No Cholecystectomy: Yes Lung Surgery: No Neurologic Surgery: No Orthopedic Surgery: No - Reproductive History (#): 7 Para: 6 Therapeutic (s) & number: No Spontaneous : 0 Uterine Fibroids: Yes (upset at mention of the word hysterectomy. I went to further description of) - Immunization History Immunization Up to Date: Yes - Suicide/Smoking/Psychosocial Hx Smoking Status: Yes Smoking History: Never smoked Have you smoked in the past 12 months: No Number of Cigarettes Smoked Daily: 0 Information on smoking cessation initiated: No 'Breaking Loose' booklet given: 04/26/12 Hx Alcohol Use: No Drug/Substance Use Hx: No Substance Use Type: None Hx Substance Use Treatment: No Review of Systems - Review of Systems Able to Perform ROS?: Yes Comments:: 05/03/18 17:41 CONSTITUTIONAL: Absent: fever, chills, diaphoresis, generalized weakness, malaise, loss of appetite HEENT: Absent: rhinorrhea, nasal congestion, throat pain, throat swelling, difficulty swallowing, mouth swelling, ear pain, eye pain, visual Changes CARDIOVASCULAR: Absent: chest pain, loss of consciousness, palpitations, irregular heart rate, peripheral edema RESPIRATORY: Absent: cough, shortness of breath, dyspnea with exertion, orthopnea, wheezing, stridor, hemoptysis GASTROINTESTINAL: Present: abdominal pain, nausea Absent: abdominal pain, abdominal distension, nausea, vomiting, diarrhea, constipation, melena, hematochezia GENITOURINARY: Present: vaginal spotting one month ago Absent: dysuria, frequency, urgency, hesitancy, hematuria, flank pain, genital pain MUSCULOSKELETAL: Absent: myalgia, arthralgia, joint swelling SKIN: Absent: rash, itching, pallor HEMATOLOGIC/IMMUNOLOGIC: Absent: easy bleeding, easy bruising, lymphadenopathy, frequent infections ENDOCRINE: Absent: unexplained weight gain, unexplained weight loss, heat intolerance, cold intolerance NEUROLOGIC: Absent: headache, focal weakness or paresthesias, dizziness, unsteady gait, seizure, mental status changes, bladder or bowel incontinence PSYCHIATRIC: Absent: anxiety, depression, suicidal or homicidal ideation, hallucinations. Is the patient limited Chinese proficient: No *Physical Exam - Vital Signs Last Vital Signs Temp Pulse Resp BP Pulse Ox 98.4 F 102 H 18 119/74 100 05/03/18 15:46 05/03/18 15:46 05/03/18 15:46 05/03/18 15:46 05/03/18 15:46 - Physical Exam Comments: 05/03/18 17:42 GENERAL: Well developed, well nourished. Awake and alert. No acute distress. HEENT: Normocephalic, atraumatic. PERRLA, EOMI. No conjunctival pallor. Sclera are non- icteric. Moist mucous membranes. Oropharynx is clear. NECK: Supple. Full ROM. No JVD. Carotid pulses 2+ and symmetric, without bruits. No thyromegaly. No lymphadenopathy. CARDIOVASCULAR: Regular rate and rhythm. No murmurs, rubs, or gallops. Distal pulses are 2+ and symmetric. PULMONARY: No evidence of respiratory distress. Lungs clear to auscultation bilaterally. No wheezing, rales or rhonchi. ABDOMINAL: Soft. Non-tender. Non-distended. No rebound or guarding. No organomegaly. Normoactive bowel sounds. MUSCULOSKELETAL Normal range of motion at all joints. No bony deformities or tenderness. No CVA tenderness. EXTREMITIES: No cyanosis. No clubbing. No edema. No calf tenderness. SKIN: Warm and dry. Normal capillary refill. No rashes. No jaundice. NEUROLOGICAL: Alert, awake, appropriate. Cranial nerves 2-12 intact. No deficits to light touch and temperature in face, upper extremities and lower extremities. No motor deficits in the in face, upper extremities and lower extremities. Normoreflexic in the upper and lower extremities. Normal speech. Toes are down- going bilaterally. Gait is normal without ataxia. PSYCHIATRIC: Cooperative. Good eye contact. Appropriate mood and affect. Moderate Sedation - Procedure Monitoring Vital Signs: Procedure Monitoring Vital Signs Temperature 98.4 F 05/03/18 15:46 Pulse Rate 102 H 05/03/18 15:46 Respiratory Rate 18 05/03/18 15:46 Blood Pressure 119/74 05/03/18 15:46 O2 Sat by Pulse Oximetry (%) 100 05/03/18 15:46 ED Treatment Course - ADDITIONAL ORDERS Additional order review: Laboratory Results 05/03/18 16:31 Urine HCG, Qual Positive - RADIOLOGY Radiology Studies Ordered: Category Date Time Status TRANSVAGINAL US PREG [US] Stat Ultrasound 05/03/18 17:20 Ordered *DC/Admit/Observation/Transfer Diagnosis at time of Disposition: Dizziness - Referrals - Patient Instructions - Post Discharge Activity
[2018-05-03] MEDS ORDERED: ACETAMINOPHEN 325 MG TABLET (FP) ONE (17:57)
[2018-05-03] MEDS ORDERED: ONDANSETRON 4 MG/2 ML VIAL ONE (17:58)
[2018-05-03 18:31] LABS: BASO % 0.6 % (0-2.0); EOS % 1.5 % (0-4.5); HEMATOCRIT 41.1 % (32.4-45.2); HEMOGLOBIN 14.5 GM/dL (10.7-15.3); LYMPH % 23.8 % (8-40); MCH 30.8 pg (25.7-33.7); MCHC 35.3 g/dl (32.0-36.0); MEAN CELL VOLUME 87.4 fl (80-96); MEAN PLT VOLUME 8.2 fl (7.5-11.1); MONO % 4.6 % (3.8-10.2); NEUT % 69.5 % (42.8-82.8); PLATELET COUNT 282 K/MM3 (134-434); RDW 13.8 % (11.6-15.6); WHITE BLOOD COUNT 14.1 K/mm3 (4.0-10.0)
[2018-05-03 18:42] LABS: INR 1.01 (0.83-1.09); PROTHROMBIN TIME (PATIENT) 11.9 SEC (9.7-13.0)
[2018-05-03 19:32] LABS: ALBUMIN 3.5 g/dl (3.4-5.0); ALK PHOS 87 U/L (45-117); ANION GAP 8 MMOL/L (8-16); BILIRUBIN,TOTAL 0.4 mg/dL (0.2-1); BLOOD UREA NITROGEN 10 mg/dL (7-18); CALCIUM 8.8 mg/dL (8.5-10.1); CHLORIDE 105 mmol/L (98-107); CO2 24 mmol/L (21-32); CREATININE 0.5 mg/dL (0.55-1.3); GLUCOSE,RANDOM 165 mg/dL (74-106); POTASSIUM 3.9 mmol/L (3.5-5.1); SGOT/AST 10 U/L (15-37); SGPT/ALT 24 U/L (13-61); SODIUM 137 mmol/L (136-145)
[2018-05-03 19:48] LABS: URINE APPEARANCE SLCLOUDY; URINE BILIRUBIN NEGATIVE (<2.0 mg/dL); URINE COLOR YELLOW; URINE GLUCOSE (UA) 1+ (NEGATIVE); URINE KETONE NEGATIVE (NEGATIVE); URINE LEUK ESTERASE NEGATIVE (NEGATIVE); URINE NITRITE NEGATIVE (NEGATIVE); URINE PROTEIN NEGATIVE (NEGATIVE); URINE UROBILINOGEN NEGATIVE mg/dL (0.2-1.0)
--- NOTE | 2018-05-03 20:23 | PDOC ---
*Physical Exam - Vital Signs Last Vital Signs Temp Pulse Resp BP Pulse Ox 98.4 F 102 H 18 119/74 100 05/03/18 15:46 05/03/18 15:46 05/03/18 15:46 05/03/18 15:46 05/03/18 15:46 ED Treatment Course - LABORATORY CBC & Chemistry Diagram: 05/03/18 18:00 05/03/18 18:00 - ADDITIONAL ORDERS Additional order review: Laboratory Results 05/03/18 05/03/18 05/03/18 18:00 18:00 18:00 PT with INR 11.90 INR 1.01 Sodium 137 Potassium 3.9 Chloride 105 Carbon Dioxide 24 Anion Gap 8 BUN 10 Creatinine 0.5 L Creat Clearance w eGFR > 60 Random Glucose 165 H Calcium 8.8 Total Bilirubin 0.4 AST 10 L ALT 24 Alkaline Phosphatase 87 Total Protein 7.0 Albumin 3.5 Beta HCG, Quant 21530.4 Urine Color Urine Appearance Urine pH Ur Specific [place] Urine Protein Urine Glucose (UA) Urine Ketones Urine Blood Urine Nitrite Urine Bilirubin Urine Urobilinogen Ur Leukocyte Esterase Urine HCG, Qual Blood Type A POSITIVE Antibody Screen Negative 05/03/18 05/03/18 16:31 16:31 PT with INR INR Sodium Potassium Chloride Carbon Dioxide Anion Gap BUN Creatinine Creat Clearance w eGFR Random Glucose Calcium Total Bilirubin AST ALT Alkaline Phosphatase Total Protein Albumin Beta HCG, Quant Urine Color Yellow Urine Appearance Slcloudy Urine pH 5.0 Ur Specific [place] 1.021 Urine Protein Negative Urine Glucose (UA) 1+ H Urine Ketones Negative Urine Blood Negative Urine Nitrite Negative Urine Bilirubin Negative Urine Urobilinogen Negative Ur Leukocyte Esterase Negative Urine HCG, Qual Positive Blood Type Antibody Screen 05/03/18 18:00 RBC 4.70 MCV 87.4 MCHC 35.3 RDW 13.8 MPV 8.2 Neutrophils % 69.5 Lymphocytes % 23.8 Monocytes % 4.6 Eosinophils % 1.5 Basophils % 0.6 - Medications Given in the ED: ED Medications Discontinued Medications Generic Name Dose Route Start Last Admin Trade Name Freq PRN Reason Stop Dose Admin Acetaminophen 650 mg 05/03/18 17:20 05/03/18 18:51 Tylenol Oral Solution - PO 05/03/18 17:21 650 mg ONCE ONE Administration Sodium Chloride 1,000 mls @ 1,000 mls/hr 05/03/18 17:20 05/03/18 18:50 Normal Saline - IV 05/03/18 18:19 1,000 mls/hr ASDIR STA Administration Ondansetron HCl 4 mg 05/03/18 17:20 05/03/18 18:51 Zofran Injection IVPUSH 05/03/18 17:21 4 mg ONCE ONE Administration Medical Decision Making - Medical Decision Making Patient signed out to me by JESÚS Turner Patient appears comfortable, in NAD; denies any pain currently Labs unremarkable other than WBC of 14 (could be related to patient's ; UA negative) Pelvic US shows IUP at 9 weeks; Bhcg correspond to gestational age Patient stable for dc 05/03/18 20:19 *DC/Admit/Observation/Transfer Diagnosis at time of Disposition: Left lower quadrant pain - Discharge Dispostion Disposition: HOME Condition at time of disposition: Stable Decision to Admit order: No - Prescriptions Prescriptions: No122/Iron/Folic Acid [ Multi Tablet] 1 each PO DAILY #30 tablet - Referrals Referrals: Husam Mcknight MD [Staff Physician] - 2 Days - Patient Instructions Printed Discharge Instructions: DI for Abdominal Pain -- Early Additional Instructions: Thank you for choosing [facility]. It was a pleasure taking care of you. Your ultrasound was normal You were noted to have 1.6 cm left ovarian cyst You were referred to [facility] for further care Return to the Emergency Department if your symptoms worsen or persist, you have fever, shortness of breath, chest pain, severe abdominal pain, vomiting, vaginal bleeding or other concerning symptoms. - Post Discharge Activity
== END 2018-05-03 21:00 | disposition home or self-care (01) ==
LOC: JER 15:20
PROC: 3E0337Z Introduction of Electrolytic and Water Balance Substance into Peripheral Vein, Percutaneous Approach (ICD-10-PCS; principal; 2018-05-03)
PROC: 3E033GC Introduction of Other Therapeutic Substance into Peripheral Vein, Percutaneous Approach (ICD-10-PCS; 2018-05-03)
DX: O26.891 Other specified pregnancy related conditions, first trimester (principal); R10.32 Left lower quadrant pain; O34.81 Maternal care for other abnormalities of pelvic organs, first trimester; N83.292 Other ovarian cyst, left side; Z3A.09 9 weeks gestation of pregnancy
CPT/HCPCS: 36415; 76801-TC; 80053; 81003; 84702; 84703; 85025; 85610; 86850; 86900; 86901; 96361; 96374; 99282-25; J7030

== ENCOUNTER → 2018-12-29 | Emergency (ER) | payer OTHER ==
[~2018-12-29] MED LIST: CYCLOBENZAPRINE HCL 10 MG TABLET (FP) ONE; CYCLOBENZAPRINE HCL 10 MG TABLET (FP) PO ONE; IBUPROFEN 400 MG TABLET (FP) PO ONE
[2018-12-29 13:18] VITALS: BP 139/82; PULSE 84; TEMP 98.1; BMI 39.1
--- NOTE | 2018-12-29 13:18 | PDOC ---
Rapid Medical Evaluation Time Seen by Provider: 12/29/18 13:13 Medical Evaluation: Allergies Allergy/AdvReac Type Severity Reaction Status Date / Time pineapple [Pineapple] Allergy Swelling Verified 05/03/18 19:49 wool Allergy Rash Uncoded 05/03/18 19:49 Tape AdvReac Rash Uncoded 05/03/18 19:49 12/29/18 13:14 I have performed a brief in-person evaluation of this patient. The patient presents with a chief complaint of: Low back pain. H/o chronic pain and sciatica. Pt has not taken any meds for symptoms. No urinary symptoms. The patient will proceed to the ED for further evaluation. Discharge Disposition - Diagnosis Back pain Qualifiers: Back pain location: low back pain Chronicity: unspecified Back pain laterality : unspecified Sciatica presence: unspecified whether sciatica present Qualified Code(s): M54.5 - Low back pain - Referrals - Patient Instructions - Post Discharge Activity
--- NOTE | 2018-12-29 13:45 | PDOC ---
History of Present Illness - General Chief Complaint: Chronic pain Stated Complaint: LOWER BACK PAIN Time Seen by Provider: 12/29/18 13:13 History Source: Patient - History of Present Illness Occurred: reports: other Severity: reports: moderate Pain Location: reports: back Past History - Past Medical History Allergies/Adverse Reactions: Allergies Allergy/AdvReac Type Severity Reaction Status Date / Time pineapple [Pineapple] Allergy Swelling Verified 12/29/18 13:14 wool Allergy Rash Uncoded 12/29/18 13:14 Tape AdvReac Rash Uncoded 12/29/18 13:14 Home Medications: Ambulatory Orders Cyclobenzaprine HCl [Flexeril 10 mg] 10 mg PO HS #9 tablet 12/29/18 Ibuprofen [Motrin -] 600 mg PO QID #28 tablet 12/29/18 Anemia: No Asthma: Yes Cancer: No Cardiac Disorders: No CVA: No COPD: No (PLEURISY) CHF: No Dementia: No Diabetes: No GI Disorders: No Disorders: Yes (RENAL COLIC, URINARY STENTS W/ REMOVAL) HTN: No Hypercholesterolemia: No Kidney Stones: Yes Liver Disease: No Seizures: No Thyroid Disease: No - Surgical History Abdominal Surgery: No Appendectomy: No Cardiac Surgery: No Cholecystectomy: Yes Lung Surgery: No Neurologic Surgery: No Orthopedic Surgery: No - Reproductive History (#): 7 Para: 6 Therapeutic (s) & number: No Spontaneous : 0 Uterine Fibroids: Yes (upset at mention of the word hysterectomy. I went to further description of) - Immunization History Immunization Up to Date: Yes - Psycho Social/Smoking Cessation Hx Smoking Status: Yes Smoking History: Unknown if ever smoked Have you smoked in the past 12 months: No Number of Cigarettes Smoked Daily: 0 'Breaking Loose' booklet given: 04/26/12 Hx Alcohol Use: No Drug/Substance Use Hx: No Substance Use Type: None Hx Substance Use Treatment: No Review of Systems - Review of Systems Constitutional: No: Chills, Fever ABD/GI: No: Nausea, Vomiting, Abdominal cramping : No: Dysuria, Flank Pain, Hematuria Musculoskeletal: Yes: Back Pain Neurological: No: Numbness, Tingling, Weakness *Physical Exam - Vital Signs Last Vital Signs Temp Pulse Resp BP Pulse Ox 98.1 F 84 18 139/82 98 12/29/18 13:16 12/29/18 13:16 12/29/18 13:16 12/29/18 13:16 12/29/18 13:16 - Physical Exam General Appearance: Yes: Appropriately Dressed. No: Apparent Distress HEENT: positive: Normal Voice Neck: positive: Supple Respiratory/Chest: negative: Respiratory Distress Gastrointestinal/Abdominal: positive: Soft. negative: Tender Musculoskeletal: negative: CVA Tenderness, Vertebral Tenderness Extremity: positive: Normal Inspection Integumentary: positive: Dry, Warm Neurologic: positive: Fully Oriented, Alert, Normal Mood/Affect, Motor Strength /5 Medical Decision Making - Medical Decision Making 12/29/18 13:42 38-year-old female, unclear psych hx, multiple chronic pain syndromes including arthritis and chronic lower back pain, L sided sciatica per patient ,has had MRI in the past but not certain results, lost to follow-up with ortho spine and pain management and has no pain meds at home, here with her usual left lower back pain x several days radiating to left thigh. No trauma. No new sensory changes, lower extremity weakness, bowel or bladder incontinence or saddle anesthesia. No sxs, n/v/f/c see exam Acute on chronic LBP No red flags today Lost to f/u No pain meds at home -Dc w/ pain control and referral to ortho spine Discharge - Discharge Information Problems reviewed: Yes Clinical Impression/Diagnosis: Chronic back pain Qualifiers: Back pain location: low back pain Back pain laterality: left Sciatica presence : unspecified whether sciatica present Qualified Code(s): M54.5 - Low back pain Condition: Good Disposition: HOME - Additional Discharge Information Prescriptions: Cyclobenzaprine HCl [Flexeril 10 mg] 10 mg PO HS #9 tablet Ibuprofen [Motrin -] 600 mg PO QID #28 tablet - Follow up/Referral Referrals: Dustin Maria MD [Staff Physician] - - Patient Discharge Instructions Additional Instructions: Take medications as prescribed and follow-up with Dr. maria of ortho spine - Post Discharge Activity
== END | disposition home or self-care (01) ==
LOC: JERFT 13:11
DX: M54.5 Low back pain (principal); G89.29 Other chronic pain; Z87.09 Personal history of other diseases of the respiratory system; Z87.442 Personal history of urinary calculi; Z88.0 Allergy status to penicillin; Z91.048 Other nonmedicinal substance allergy status
CPT/HCPCS: 99281-25

== ENCOUNTER 2019-02-28 19:28 | Emergency (ER) | payer OTHER ==
--- NOTE | 2019-02-28 20:12 | PDOC ---
Rapid Medical Evaluation Time Seen by Provider: 02/28/19 20:10 Medical Evaluation: Allergies Allergy/AdvReac Type Severity Reaction Status Date / Time pineapple [Pineapple] Allergy Swelling Verified 12/29/18 13:14 wool Allergy Rash Uncoded 12/29/18 13:14 Tape AdvReac Rash Uncoded 12/29/18 13:14 02/28/19 20:10 Patient c/o: urinary freq, left flank pain, feels as if she is passing stones Patient on brief exam: vss, urine specimen clear Patient ordered for: ua, ucx Patient to proceed to the ED Discharge Disposition - Diagnosis UTI (urinary tract infection) - Discharge Dispostion Disposition: HOME Condition at time of disposition: Stable - Prescriptions Prescriptions: Cephalexin Monohydrate [Keflex -] 500 mg PO BID #14 capsule - Referrals Referrals: [facility] [place] [place] [Provider Group] Brown Frias MD [Staff Physician] - - Patient Instructions Additional Instructions: Take Keflex 500 mg twice a day until all medication has been completed. You may want to eat daily yogurt or take probiotics to prevent a yeast infection Your gonorrhea and Chlamydia testing will take 2 to 3 days to get the results. We will call you for a positive result. You been given the number for a urologist. Call to schedule an appointment for reevaluation. Return to the emergency department for any worsening pain, fevers, blood in your urine or for any other concerns. Thank you very much for choosing us to provide your emergent health care needs. - Post Discharge Activity
[2019-02-28 20:14] VITALS: BP 133/71; PULSE 93; TEMP 98.7; BMI 39.4
[2019-02-28 20:40] LABS: EPI CELLS 4.6 /HPF (0-5/HPF); HYALINE CASTS 10 /lpf (0-8); URINE APPEARANCE CLEAR; URINE BACTERIA 210.1 /hpf (NEGATIVE); URINE BILIRUBIN NEGATIVE (NEGATIVE); URINE COLOR YELLOW; URINE GLUCOSE (UA) NEGATIVE (NEGATIVE); URINE KETONE NEGATIVE (NEGATIVE); URINE LEUK ESTERASE 1+ (NEGATIVE); URINE NITRITE NEGATIVE (NEGATIVE); URINE PROTEIN NEGATIVE (NEGATIVE); URINE RBC 2 /hpf (0-4); URINE UROBILINOGEN 0.2 mg/dL (0.2-1.0); URINE WBC 11 /hpf (0-5)
[2019-02-28] MEDS ORDERED: KETOROLAC TROMETHAMINE 30 MG/1 ML VIAL IM ONE (21:39)
--- NOTE | 2019-02-28 21:40 | PDOC ---
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 Patient reports when she voided this morning she felt some irritation while voiding and believes she may have passed a kidney stone. Patient endorses mild nausea. Patient denies any vaginal itching or vaginal bleeding. Patient is having unprotected sex with one male partner who is with the patient and denies any symptoms. Patient denies fevers, chills, vomiting. No recent travel or sick contacts. PAST MEDICAL HISTORY: See HPI SURGICAL HISTORY: Denies ALLERGIES: No known drug allergies REVIEW OF SYSTEMS General/Constitutional: Denies fever or chills. Denies weakness, weight change. HEENT: Denies change in vision. Denies ear pain or discharge. Denies sore throat. Cardiovascular: Denies chest pain or shortness of breath. Respiratory: Denies cough, wheezing, or hemoptysis. Gastrointestinal: Denies nausea, vomiting, diarrhea or constipation. Denies rectal bleeding. Genitourinary: See HPI Musculoskeletal: Denies joint or muscle swelling or pain. Denies neck or back pain. Skin and breasts: Denies rash or easy bruising. Neurologic: Denies headache, vertigo, loss of consciousness, or loss of sensation. Psychiatric: Denies depression or anxiety. Endocrine: Denies increased thirst. Denies abnormal weight change. Hematologic/Lymphatic: Denies anemia, easy bleeding, or history of blood clots. Allergic/Immunologic: Denies hives or skin allergy. Denies latex allergy. PHYSICAL EXAM General Appearance: Well-appearing, appropriately dressed. No apparent distress , no intoxication. Respiratory/Chest: Lungs CTAB. No shortness of breath, chest tenderness, respiratory distress, accessory muscle use. No crackles, rales, rhonchi, stridor , wheezing, dullness Cardiovascular: RRR. S1, S2. No JVD, murmur, bradycardia, tachycardia. Vascular Pulses: Dorsalis-Pedis (R): 2+, Dorsalis-Pedis (L): 2+ Gastrointestinal/Abdominal: Normal bowel sounds. Abdomen soft, non-distended. Suprapubic tenderness. No rebound tenderness. No organomegaly, pulsatile mass, guarding, hernia, hepatomegaly, splenomegaly. Lymphatic: No adenopathy, tenderness. Musculoskeletal/Extremities: Normal inspection. FROM of all extremities, normal capillary refill. Pelvis Stable. Left CVA tenderness. No tenderness to extremities, pedal edema, swelling, erythema or deformity. Past History - Past Medical History Allergies/Adverse Reactions: Allergies Allergy/AdvReac Type Severity Reaction Status Date / Time pineapple [Pineapple] Allergy Swelling Verified 12/29/18 13:14 wool Allergy Rash Uncoded 12/29/18 13:14 Tape AdvReac Rash Uncoded 12/29/18 13:14 Home Medications: Ambulatory Orders Cyclobenzaprine HCl [Flexeril 10 mg] 10 mg PO HS #9 tablet 12/29/18 Ibuprofen [Motrin -] 600 mg PO QID #28 tablet 12/29/18 Cephalexin Monohydrate [Keflex -] 500 mg PO BID #14 capsule 02/28/19 Anemia: No Asthma: Yes Cancer: No Cardiac Disorders: No CVA: No COPD: No (PLEURISY) CHF: No Dementia: No Diabetes: No GI Disorders: No Disorders: Yes (RENAL COLIC, URINARY STENTS W/ REMOVAL) HTN: No Hypercholesterolemia: No Kidney Stones: Yes Liver Disease: No Seizures: No Thyroid Disease: No - Surgical History Abdominal Surgery: No Appendectomy: No Cardiac Surgery: No Cholecystectomy: Yes Lung Surgery: No Neurologic Surgery: No Orthopedic Surgery: No - Reproductive History (#): 7 Para: 6 Therapeutic (s) & number: No Spontaneous : 0 Uterine Fibroids: Yes (upset at mention of the word hysterectomy. I went to further description of) - Immunization History Immunization Up to Date: Yes - Psycho Social/Smoking Cessation Hx Smoking Status: Yes Smoking History: Never smoked Have you smoked in the past 12 months: No Number of Cigarettes Smoked Daily: 0 'Breaking Loose' booklet given: 04/26/12 Hx Alcohol Use: No Drug/Substance Use Hx: No Substance Use Type: None Hx Substance Use Treatment: No *Physical Exam - Vital Signs Last Vital Signs Temp Pulse Resp BP Pulse Ox 98.7 F 93 H 19 133/71 100 02/28/19 20:10 02/28/19 20:10 02/28/19 20:10 02/28/19 20:10 02/28/19 20:10 ED Treatment Course - ADDITIONAL ORDERS Additional order review: Laboratory Results 02/28/19 02/28/19 20:20 20:20 Urine Color Yellow Urine Appearance Clear Urine pH 6.0 Ur Specific [place] 1.016 Urine Protein Negative Urine Glucose (UA) Negative Urine Ketones Negative Urine Blood Negative Urine Nitrite Negative Urine Bilirubin Negative Urine Urobilinogen 0.2 Ur Leukocyte Esterase 1+ H Urine WBC (Auto) 11 Urine RBC (Auto) 2 Urine Casts (Auto) 10 U Epithel Cells (Auto) 4.6 Urine Bacteria (Auto) 210.1 Urine HCG, Qual Negative - RADIOLOGY Radiology Studies Ordered: Category Date Time Status SPIRAL- RENAL-STONE CT [CT] Stat CT Scan 02/28/19 21:39 Ordered Medical Decision Making - Medical Decision Making 02/28/19 21:49 A/P: 38-year-old woman with flank pain and dysuria for 2 days Patient mildly tachycardic with a heart rate of 97 otherwise vital signs are normal with out fever. Left CVA tenderness noted Given patient's history and will get CT of the abdomen and pelvis to rule out kidney stone Urinalysis, urine culture, urine , urine GC Toradol 30 mg IM now Reassess 02/28/19 23:23 CT scan is read by Dr. Zimmer: Bilateral renal nonobstructing stones. No gross hydroureteronephrosis or ureteral stone is identified bilaterally. Status post cholecystectomy. Surgical metallic clips seen again. Small fat-containing umbilical hernia. No free air or free fluid in the abdomen and pelvis. Patient with weak evidence of urinary tract infection but given findings I will treat. We will give patient referral for urology to follow-up and continue to monitor her stones. I discussed the physical exam findings, ancillary test results and final diagnoses with the patient. I answered all of the patient's questions. The patient was satisfied with the care received and felt comfortable with the discharge plan and treatment plan. The patient will call their primary care physician within 24 hours to arrange follow-up and will return to the Emergency Department with any new, persistent or worsening symptoms. Discharge - Discharge Information Problems reviewed: Yes Clinical Impression/Diagnosis: UTI (urinary tract infection) Qualifiers: Urinary tract infection type: acute cystitis Hematuria presence: without hematuria Qualified Code(s): N30.00 - Acute cystitis without hematuria Condition: Stable Disposition: HOME - Admission No - Additional Discharge Information Prescriptions: Cephalexin Monohydrate [Keflex -] 500 mg PO BID #14 capsule - Follow up/Referral Referrals: Brown Frias MD [Staff Physician] - [facility] [place] [facility] [place] [Provider Group] - Patient Discharge Instructions Additional Instructions: Take Keflex 500 mg twice a day until all medication has been completed. You may want to eat daily yogurt or take probiotics to prevent a yeast infection Your gonorrhea and Chlamydia testing will take 2 to 3 days to get the results. We will call you for a positive result. You been given the number for a urologist. Call to schedule an appointment for reevaluation. Return to the emergency department for any worsening pain, fevers, blood in your urine or for any other concerns. Thank you very much for choosing us to provide your emergent health care needs. - Post Discharge Activity
[2019-02-28] MEDS ORDERED: KETOROLAC TROMETHAMINE 30 MG/1 ML VIAL ONE (22:27)
== END 2019-02-28 23:36 | disposition home or self-care (01) ==
LOC: JER 19:28
PROC: 3E0233Z Introduction of Anti-inflammatory into Muscle, Percutaneous Approach (ICD-10-PCS; principal; 2019-02-28)
DX: R05 Cough (principal); N30.00 Acute cystitis without hematuria; Z87.442 Personal history of urinary calculi; Z91.018 Allergy to other foods; Z91.09 Other allergy status, other than to drugs and biological substances
CPT/HCPCS: 36415; 74176-TC; 81003; 84703; 87086; 87491; 87591; 99282-25

== ENCOUNTER 2021-02-19 01:13 | Emergency (ER) | payer OTHER ==
[2021-02-19 01:58] VITALS: BP 155/98; PULSE 102; TEMP 97.8; BMI 42.9
== END 2021-02-19 08:05 | disposition home or self-care (01) ==
LOC: JER 01:13
DX: E11.9 Type 2 diabetes mellitus without complications (principal); Z76.0 Encounter for issue of repeat prescription
CPT/HCPCS: 82962; 99282-25